=== PATIENT | female | born 1950 | race Caucasian/White ===

== ENCOUNTER 2023-04-22 05:04 | Inpatient (IN) | payer OTHER ==
[2023-04-22 06:03] LABS: Hematocrit 42.3 % (34.9-44.5); Hemoglobin 13.7 g/dL (12.0-15.5); Mean Corpuscular HGB CONC 32.4 g/dL (32.0-36.0); Mean Corpuscular Hemoglobin 29.7 pg (27.0-33.0); Mean Corpuscular Volume 91.6 fl (81.6-98.3); Platelet Count 432 10x3/uL (150-450); RBC Distribution Width 14.6 % (11.5-14.5); Red Blood Cell (RBC) Count 4.62 10x6/uL (3.90-5.03); White Blood Cell (WBC) Count 35.9 10x3/uL (3.5-10.5)
[2023-04-22 06:06] LABS: MDiff Complete? YES
[2023-04-22] MEDS ORDERED: Vancomycin 1 GM VIAL ONE (06:16)
[2023-04-22] MEDS ORDERED: Cefepime 2 GM VIAL ONE (06:16)
[2023-04-22 06:18] LABS: Bilirubin Neg (Negative); Blood, Urine 10 (Negative); Clarity Slightly Cloudy (Clear); Glucose, Urine (Dipstick) Normal (Negative); Ketone, Urine Negative (Negative); Leukocyte 100 (Negative); Nitrite Negative (Negative); Protein, Urine (Dipstick) 30 mg/dl (Neg-Trace); Specific Gravity, Urine 1.015 (1.005-1.030); Urobilinogen Normal mg/dL (Less than 2)
[2023-04-22 06:26] LABS: Platelet Adequacy Comment Appears Adequate; RBC Morph Comment Within Normal Limits
[2023-04-22 06:27] LABS: Bacteria/HPF 4+ HPF (None Seen); CAUTI Indications for Culture Alt mental st,lethar; RBC/HPF 0-3 HPF (0-3); Squamous Epithelial 0-3 HPF (0-3); Transitional Epithelial 0-3 HPF (None Seen)
[2023-04-22 06:28] LABS: Band 12 % (5-11); Lymphocytes 7 % (21-51); Monocytes 6 % (0-10); Neutrophil 75 % (42-75); Troponin I 0.018 ng/mL (< 0.028)
[2023-04-22 06:28] LABS: Urine Culture Reflex No No
[2023-04-22 07:23] LABS: ALT (SGPT) 46 U/L (8-55); AST (SGOT) 68 U/L (5-34); Albumin 3.1 g/dL (3.4-4.8); Alkaline Phosphatase 179 U/L (40-110); Anion Gap 22 mmol/L (10-20); BUN (Urea Nitrogen) 107 mg/dL (9.8-20.1); Bilirubin, Total 0.7 mg/dL (0.2-1.2); Calc. Creatinine Clearance 0 mL/min (70-130); Carbon Dioxide 14 mmol/L (23-31); Chloride 121 mmol/L (98-107); Estimated GFR 20; Globulin 4.5 g/dL (2.4-3.5); Glucose 108 mg/dL (83-110); Potassium 5.4 mmol/L (3.5-5.1); Protein, Total 7.6 g/dL (5.8-8.1)
[2023-04-22] MEDS ORDERED: Calcium Carbonate 500 MG ChewTAB PO PRN (08:18)
[2023-04-22] MEDS ORDERED: Ondansetron PF 4 MG/2 ML Vial IVP PRN (08:18)
[2023-04-22] MEDS ORDERED: Acetaminophen 325 MG TAB PO PRN (08:18)
[2023-04-22] MEDS ORDERED: Senokot S 8.6-50 MG TAB PO PRN (08:18)
[2023-04-22 08:24] LABS: Sodium 149 mmol/L (136-145)
[2023-04-22] MEDS ORDERED: Ipratropium/Albuterol 3 ML NEB NEB PRN (08:24)
[2023-04-22] MEDS ORDERED: Benzonatate 100 MG CAP PO PRN (08:24)
[2023-04-22 08:28] LABS: Critical Call Chemistry ERS.CP1@0825
[2023-04-22] MEDS ORDERED: Famotidine 20 MG TAB ONE (09:40)
[2023-04-22] MEDS ORDERED: Metoprolol Tartrate 25 MG TAB ONE (09:40)
[2023-04-22] MEDS ORDERED: risperiDONE 0.25 MG TAB ONE (09:43)
[2023-04-22] MEDS ORDERED: Thiamine 100 MG TAB ONE (09:43)
[2023-04-22] MEDS ORDERED: Azithromycin 500 MG VIAL ONE (09:43)
[2023-04-22] MEDS: Famotidine 20 MG TAB PO SCH (10:10)
[2023-04-22] MEDS: Sodium Chloride 0.9% 1,000 ML IV SCH (10:10)
[2023-04-22] MEDS: Azithromycin 500 MG in Sodium Chloride 0.9% 250 ML 250 ML IVPB SCH (10:10)
[2023-04-22] MEDS: risperiDONE 0.25 MG TAB PO SCH (10:10)
[2023-04-22] MEDS: Metoprolol Tartrate 25 MG TAB PO SCH (10:10)
[2023-04-22] MEDS: Thiamine 100 MG TAB PO SCH (10:11)
[2023-04-22] MEDS ORDERED: Apixaban 5 MG TAB ONE (10:29)
[2023-04-22] MEDS: Apixaban 5 MG TAB PO SCH (10:29)
[2023-04-22] MEDS: Dextrose 5 %-0.45 % NaCl 1,000 ML IV SCH (11:08)
[2023-04-22 15:40] LABS: Anion Gap 15 mmol/L (10-20); BUN (Urea Nitrogen) 97 mg/dL (9.8-20.1); Calc. Creatinine Clearance 0 mL/min (70-130); Calcium 9.2 mg/dL (7.8-10.44); Carbon Dioxide 18 mmol/L (23-31); Chloride 123 mmol/L (98-107); Estimated GFR 23; Glucose 119 mg/dL (83-110); Potassium 4.9 mmol/L (3.5-5.1)
[2023-04-22 15:42] LABS: Critical Call Chemistry ERS.CP1 AT 1540; Sodium 151 mmol/L (136-145)
[2023-04-22 16:18] LABS: Legionella Urinary Ag Negative (Negative); Strep pneumo Urine Ag NEGATIVE (NEGATIVE)
[2023-04-22] MEDS ORDERED: Cefepime 1 GM VIAL ONE (17:18)
[2023-04-22] MEDS: Cefepime 1 GM in Sodium Chloride 0.9% 100 ML IVPB SCH (18:20)
[2023-04-22 19:54] LABS: Anion Gap 16 mmol/L (10-20); BUN (Urea Nitrogen) 90 mg/dL (9.8-20.1); Calc. Creatinine Clearance 0 mL/min (70-130); Calcium 9.1 mg/dL (7.8-10.44); Carbon Dioxide 17 mmol/L (23-31); Chloride 123 mmol/L (98-107); Estimated GFR 24; Glucose 125 mg/dL (83-110); Potassium 4.6 mmol/L (3.5-5.1)
[2023-04-22 20:20] LABS: Sodium 151 mmol/L (136-145)
[2023-04-22 23:44] VITALS: BMI 24.2
[2023-04-23 05:59] LABS: Hematocrit 41.1 % (34.9-44.5); Hemoglobin 12.7 g/dL (12.0-15.5); Mean Corpuscular HGB CONC 30.9 g/dL (32.0-36.0); Mean Corpuscular Hemoglobin 29.7 pg (27.0-33.0); Mean Corpuscular Volume 96.3 fl (81.6-98.3); Mean Platelet Volume 11.3 fl (7.4-10.4); Platelet Count 437 10x3/uL (150-450); RBC Distribution Width 14.9 % (11.5-14.5); Red Blood Cell (RBC) Count 4.27 10x6/uL (3.90-5.03); White Blood Cell (WBC) Count 28.2 10x3/uL (3.5-10.5)
[2023-04-23 06:03] LABS: AST (SGOT) 96 U/L (5-34); Albumin 2.7 g/dL (3.4-4.8); Alkaline Phosphatase 203 U/L (40-110); Anion Gap 17 mmol/L (10-20); Bilirubin, Total 0.6 mg/dL (0.2-1.2); Calc. Creatinine Clearance 27 mL/min (70-130); Calcium 8.3 mg/dL (7.8-10.44); Carbon Dioxide 15 mmol/L (23-31); Chloride 125 mmol/L (98-107); Critical Call Chemistry NUR.CB19 @0602; Estimated GFR 27; Globulin 2.6 g/dL (2.4-3.5); Glucose 118 mg/dL (83-110); Sodium 152 mmol/L (136-145)
[2023-04-23 06:05] LABS: BUN (Urea Nitrogen) 81 mg/dL (9.8-20.1); Protein, Total 5.3 g/dL (5.8-8.1)
[2023-04-23 06:11] LABS: MDiff Complete? YES
[2023-04-23 06:14] LABS: ALT (SGPT) 52 U/L (8-55)
[2023-04-23 06:27] LABS: Band 13 % (5-11); Eosinophils 1 % (0-10); Lymphocytes 7 % (21-51); Monocytes 5 % (0-10); Neutrophil 74 % (42-75); Nucleated RBC (Manual Ct) 1 % (0)
[2023-04-23 06:28] LABS: RBC Morph Comment Within Normal Limits
[2023-04-23 06:29] LABS: Platelet Adequacy Comment Appears Adequate
[2023-04-23] MEDS: Dextrose 5 %-0.45 % NaCl 1,000 ML IV SCH (12:20)
[2023-04-24 06:03] LABS: ALT (SGPT) 65 U/L (8-55); AST (SGOT) 114 U/L (5-34); Albumin 2.7 g/dL (3.4-4.8); Alkaline Phosphatase 217 U/L (40-110); Anion Gap 17 mmol/L (10-20); BUN (Urea Nitrogen) 62 mg/dL (9.8-20.1); Bilirubin, Direct 0.2 mg/dL (0.1-0.3); Bilirubin, Total 0.6 mg/dL (0.2-1.2); Calc. Creatinine Clearance 30 mL/min (70-130); Calcium 9.3 mg/dL (7.8-10.44); Carbon Dioxide 13 mmol/L (23-31); Chloride 126 mmol/L (98-107); Estimated GFR 31; Glucose 111 mg/dL (83-110); Magnesium 2.3 mg/dL (1.6-2.6); Protein, Total 6.5 g/dL (5.8-8.1)
[2023-04-24 06:06] LABS: Critical Call Chemistry NUR.JW12 @0604; Sodium 151 mmol/L (136-145)
[2023-04-24 06:12] LABS: #Basophils 0.1 10x3/uL (0.0-0.2); #Eosinphils 0.3 10x3/uL (0.0-0.5); #Monocytes 1.1 10x3/uL (0.0-1.1); #Neutrophils 18.7 10x3/uL (1.5-8.4); %Basophils 0.6 % (0.0-2.0); %Eosinophils 1.4 % (0.0-6.0); %Lymphocytes 6.5 % (18.0-47.0); %Monocytes 4.9 % (0.0-10.0); %Neutrophils 82.1 % (40.0-75.0); Hematocrit 38.4 % (34.9-44.5); Hemoglobin 11.8 g/dL (12.0-15.5); Mean Corpuscular HGB CONC 30.7 g/dL (32.0-36.0); Mean Corpuscular Hemoglobin 29.1 pg (27.0-33.0); Mean Corpuscular Volume 94.8 fl (81.6-98.3); Mean Platelet Volume 11.1 fl (7.4-10.4); Platelet Count 439 10x3/uL (150-450); RBC Distribution Width 14.9 % (11.5-14.5); Red Blood Cell (RBC) Count 4.05 10x6/uL (3.90-5.03); White Blood Cell (WBC) Count 22.8 10x3/uL (3.5-10.5)
[2023-04-24] MEDS: Dextrose 5% in Water 1,000 ML IV SCH ×2 (11:54→16:00)
[2023-04-24 13:57] LABS: ALT (SGPT) 57 U/L (8-55); AST (SGOT) 76 U/L (5-34); Albumin 2.7 g/dL (3.4-4.8); Alkaline Phosphatase 188 U/L (40-110); Anion Gap 15 mmol/L (10-20); BUN (Urea Nitrogen) 52 mg/dL (9.8-20.1); Bilirubin, Total 0.5 mg/dL (0.2-1.2); Calc. Creatinine Clearance 35 mL/min (70-130); Calcium 9.1 mg/dL (7.8-10.44); Carbon Dioxide 14 mmol/L (23-31); Chloride 127 mmol/L (98-107); Estimated GFR 37; Globulin 3.5 g/dL (2.4-3.5); Glucose 106 mg/dL (83-110); Potassium 4.6 mmol/L (3.5-5.1); Protein, Total 6.2 g/dL (5.8-8.1)
[2023-04-24 14:06] LABS: Critical Call Chemistry NUR.MDS2 AT 1406; Sodium 151 mmol/L (136-145)
[2023-04-24 16:46] LABS: Lactic Acid 2.1 mmol/L (0.5-2.2)
[2023-04-24 16:50] LABS: Anion Gap 14 mmol/L (10-20); BUN (Urea Nitrogen) 51 mg/dL (9.8-20.1); Calc. Creatinine Clearance 34 mL/min (70-130); Carbon Dioxide 16 mmol/L (23-31); Chloride 125 mmol/L (98-107); Estimated GFR 36; Glucose 113 mg/dL (83-110); Potassium 4.3 mmol/L (3.5-5.1)
[2023-04-24 17:05] LABS: Sodium 151 mmol/L (136-145)
[2023-04-24] MEDS: Sodium Bicarbonate Tab 325 MG TAB PO SCH (21:33)
[2023-04-25 06:25] LABS: #Basophils 0.1 10x3/uL (0.0-0.2); #Eosinphils 0.4 10x3/uL (0.0-0.5); #Monocytes 0.7 10x3/uL (0.0-1.1); #Neutrophils 13.1 10x3/uL (1.5-8.4); %Basophils 0.3 % (0.0-2.0); %Eosinophils 2.6 % (0.0-6.0); %Lymphocytes 8.3 % (18.0-47.0); %Monocytes 4.1 % (0.0-10.0); %Neutrophils 79.9 % (40.0-75.0); Hemoglobin 10.6 g/dL (12.0-15.5); Mean Corpuscular HGB CONC 31.2 g/dL (32.0-36.0); Mean Corpuscular Volume 96.3 fl (81.6-98.3); Platelet Count 409 10x3/uL (150-450); RBC Distribution Width 15.1 % (11.5-14.5); Red Blood Cell (RBC) Count 3.53 10x6/uL (3.90-5.03); White Blood Cell (WBC) Count 16.4 10x3/uL (3.5-10.5)
[2023-04-25 06:33] LABS: INR-International Normal Ratio 1.2; PTT 31.3 sec (22.0-33.0); Prothrombin Time 12.6 sec (9.5-12.1)
[2023-04-25 06:38] LABS: Anion Gap 14 mmol/L (10-20); BUN (Urea Nitrogen) 42 mg/dL (9.8-20.1); Calc. Creatinine Clearance 37 mL/min (70-130); Calcium 8.8 mg/dL (7.8-10.44); Carbon Dioxide 16 mmol/L (23-31); Chloride 120 mmol/L (98-107); Estimated GFR 40; Glucose 126 mg/dL (83-110); Potassium 4.1 mmol/L (3.5-5.1); Sodium 146 mmol/L (136-145)
[2023-04-25 06:56] LABS: HIV (1/2) Antibody/Antigen Non-Reactive (NonReactive); HIV 1/2 INDEX 0.18 S/CO (<1.00)
[2023-04-25 07:10] LABS: Syphilis Antibody Nonreactive (Nonreactive); Syphilis Antibody Index 0.18 S/CO (<1.00 Non-Reactive)
[2023-04-25] MEDS: metroNIDAZOLE 500 MG in Premix 1 BAG IVPB SCH (09:59)
[2023-04-25 14:12] LABS: Vitamin B12 884 pg/mL (211-911)
[2023-04-26 04:26] LABS: Hematocrit 34.2 % (34.9-44.5); Mean Corpuscular HGB CONC 32.2 g/dL (32.0-36.0); Mean Corpuscular Hemoglobin 30.1 pg (27.0-33.0); Mean Corpuscular Volume 93.7 fl (81.6-98.3); Mean Platelet Volume 10.9 fl (7.4-10.4); Platelet Count 408 10x3/uL (150-450); RBC Distribution Width 14.7 % (11.5-14.5); Red Blood Cell (RBC) Count 3.65 10x6/uL (3.90-5.03); White Blood Cell (WBC) Count 15.3 10x3/uL (3.5-10.5)
[2023-04-26 04:38] LABS: Anion Gap 13 mmol/L (10-20); BUN (Urea Nitrogen) 33 mg/dL (9.8-20.1); Calc. Creatinine Clearance 43 mL/min (70-130); Calcium 8.6 mg/dL (7.8-10.44); Carbon Dioxide 18 mmol/L (23-31); Chloride 116 mmol/L (98-107); Estimated GFR 47; Glucose 99 mg/dL (83-110); Magnesium 1.8 mg/dL (1.6-2.6); Potassium 3.9 mmol/L (3.5-5.1); Sodium 143 mmol/L (136-145)
[2023-04-26 04:40] LABS: MDiff Complete? YES
[2023-04-26 04:44] LABS: Eosinophils 3 % (0-10); Lymphocytes 11 % (21-51); Metamyelocyte 1 % (0-0); Monocytes 7 % (0-10); Myelocyte 2 % (0-0); Neutrophil 76 % (42-75)
[2023-04-26 04:46] LABS: Large Platelets SLIGHT (None Seen); Platelet Adequacy Comment Appears Adequate
[2023-04-26 04:47] LABS: RBC Morph Comment Within Normal Limits; Toxic Granulation SLIGHT
[2023-04-26 10:37] LABS: ALT (SGPT) 46 U/L (8-55); AST (SGOT) 47 U/L (5-34); Albumin 2.5 g/dL (3.4-4.8); Alkaline Phosphatase 168 U/L (40-110); Bilirubin, Direct 0.2 mg/dL (0.1-0.3); Bilirubin, Total 0.3 mg/dL (0.2-1.2); Protein, Total 5.7 g/dL (5.8-8.1)
[2023-04-26] MEDS: metroNIDAZOLE 500 MG in Premix 1 BAG IVPB SCH (10:47)
[2023-04-26] MEDS: cefTRIAXone\\ROCEPHIN 1 GM in Sodium Chloride 0.9% 100 ML IVPB SCH (10:49)
[2023-04-26] MEDS: Dextrose 5% in Water 1,000 ML IV SCH (11:32)
[2023-04-27 05:46] LABS: Hematocrit 37.4 % (34.9-44.5); Mean Corpuscular HGB CONC 32.1 g/dL (32.0-36.0); Mean Corpuscular Hemoglobin 30.1 pg (27.0-33.0); Mean Corpuscular Volume 93.7 fl (81.6-98.3); Mean Platelet Volume 11.3 fl (7.4-10.4); Platelet Count 366 10x3/uL (150-450); RBC Distribution Width 14.6 % (11.5-14.5); Red Blood Cell (RBC) Count 3.99 10x6/uL (3.90-5.03); White Blood Cell (WBC) Count 13.9 10x3/uL (3.5-10.5)
[2023-04-27 05:52] LABS: Band 1 % (5-11); Eosinophils 1 % (0-10); Lymphocytes 13 % (21-51); Metamyelocyte 1 % (0-0); Monocytes 5 % (0-10); Myelocyte 2 % (0-0)
[2023-04-27 05:53] LABS: Anisocytosis SLIGHT = 6-15 cells (100X) (0-5/hpf); Neutrophil 77 % (42-75)
[2023-04-27 05:54] LABS: RBC Morph Comment Within Normal Limits
[2023-04-27 05:55] LABS: Platelet Adequacy Comment Appears Adequate; Vacuoles SLIGHT
[2023-04-27 07:48] LABS: ALT (SGPT) 36 U/L (8-55); AST (SGOT) 31 U/L (5-34); Albumin 2.6 g/dL (3.4-4.8); Alkaline Phosphatase 158 U/L (40-110); Anion Gap 12 mmol/L (10-20); BUN (Urea Nitrogen) 31 mg/dL (9.8-20.1); Bilirubin, Total 0.3 mg/dL (0.2-1.2); Calc. Creatinine Clearance 44 mL/min (70-130); Calcium 8.8 mg/dL (7.8-10.44); Carbon Dioxide 19 mmol/L (23-31); Chloride 115 mmol/L (98-107); Estimated GFR 49; Globulin 3.6 g/dL (2.4-3.5); Glucose 92 mg/dL (83-110); Magnesium 1.8 mg/dL (1.6-2.6); Protein, Total 6.2 g/dL (5.8-8.1); Sodium 142 mmol/L (136-145)
[2023-04-27] MEDS: Dextrose 5% in Water 1,000 ML IV SCH (09:47)
[2023-04-27] MEDS: Ergocalciferol 1.25 MG(50,000 UNITS) CAP PO SCH (10:05)
[2023-04-28 04:12] LABS: #Basophils 0.1 10x3/uL (0.0-0.2); #Eosinphils 0.3 10x3/uL (0.0-0.5); #Monocytes 0.6 10x3/uL (0.0-1.1); #Neutrophils 11.3 10x3/uL (1.5-8.4); %Basophils 0.5 % (0.0-2.0); %Eosinophils 2.2 % (0.0-6.0); %Monocytes 4.3 % (0.0-10.0); %Neutrophils 78.3 % (40.0-75.0); Hematocrit 37.4 % (34.9-44.5); Hemoglobin 11.5 g/dL (12.0-15.5); Mean Corpuscular HGB CONC 30.7 g/dL (32.0-36.0); Mean Corpuscular Hemoglobin 29.3 pg (27.0-33.0); Mean Corpuscular Volume 95.2 fl (81.6-98.3); Mean Platelet Volume 11.1 fl (7.4-10.4); Platelet Count 316 10x3/uL (150-450); RBC Distribution Width 14.4 % (11.5-14.5); Red Blood Cell (RBC) Count 3.93 10x6/uL (3.90-5.03); White Blood Cell (WBC) Count 14.3 10x3/uL (3.5-10.5)
[2023-04-28 04:25] LABS: ALT (SGPT) 26 U/L (8-55); AST (SGOT) 26 U/L (5-34); Albumin 2.5 g/dL (3.4-4.8); Alkaline Phosphatase 127 U/L (40-110); Anion Gap 10 mmol/L (10-20); BUN (Urea Nitrogen) 27 mg/dL (9.8-20.1); Bilirubin, Total 0.2 mg/dL (0.2-1.2); Calc. Creatinine Clearance 47 mL/min (70-130); Calcium 8.3 mg/dL (7.8-10.44); Carbon Dioxide 18 mmol/L (23-31); Chloride 113 mmol/L (98-107); Estimated GFR 53; Globulin 2.9 g/dL (2.4-3.5); Glucose 97 mg/dL (83-110); Magnesium 1.7 mg/dL (1.6-2.6); Potassium 3.8 mmol/L (3.5-5.1); Protein, Total 5.4 g/dL (5.8-8.1); Sodium 137 mmol/L (136-145)
[2023-04-28] MEDS: metroNIDAZOLE 500 MG (100 mL) BAG ONE (06:45)
[2023-04-28] MEDS: Cholecalciferol 1,000 UNITS (25 MCG) TAB PO SCH (08:30)
[2023-04-28 08:34] VITALS: TEMP 98
[2023-04-28 12:06] VITALS: BP 128/72
== END 2023-04-28 12:39 | DRG 871 ==
LOC: SUATTDRO 05:04 → CSHERS 05:04 → CSHERHOLD 07:45 → CSHTELE 19:19
PROVIDERS: ADMIT Internal Medicine; ATTEND Family Medicine
DX: A41.51 Sepsis due to Escherichia coli [E. coli] (principal); G93.41 Metabolic encephalopathy; J96.01 Acute respiratory failure with hypoxia; U07.1 COVID-19; J18.9 Pneumonia, unspecified organism; N17.9 Acute kidney failure, unspecified; I48.92 Unspecified atrial flutter; N39.0 Urinary tract infection, site not specified; E87.1 Hypo-osmolality and hyponatremia; E87.20 Acidosis, unspecified; Z66 Do not resuscitate; F03.90 Unspecified dementia, unspecified severity, without behavioral disturbance, psychotic disturbance, mood disturbance, and anxiety; M19.90 Unspecified osteoarthritis, unspecified site; G89.29 Other chronic pain; E78.5 Hyperlipidemia, unspecified; I12.9 Hypertensive chronic kidney disease with stage 1 through stage 4 chronic kidney disease, or unspecified chronic kidney disease; D63.1 Anemia in chronic kidney disease; F41.9 Anxiety disorder, unspecified; F32.A Depression, unspecified; F10.10 Alcohol abuse, uncomplicated; N18.30 Chronic kidney disease, stage 3 unspecified; E87.8 Other disorders of electrolyte and fluid balance, not elsewhere classified; R41.82 Altered mental status, unspecified; Z88.1 Allergy status to other antibiotic agents; Z88.8 Allergy status to other drugs, medicaments and biological substances; Z79.899 Other long term (current) drug therapy; Z79.1 Long term (current) use of non-steroidal anti-inflammatories (NSAID)
CPT/HCPCS: 36415; 36416; 70450; 71045; 71260; 74177; 74230; 76700; 80048; 80053; 80076; 81001; 82140; 82306; 82607; 83605; 83735; 83880; 83970; 84145; 84443; 84484; 85025; 85610; 85730; 86140; 86780; 87040; 87077; 87081; 87086; 87149; 87186; 87389; 87449; 87899; 93005; 94760; 94762; 96365; 96375; J0456; J0692; J0696; J3370; J3490; J7042; J7050; J7070